=== PATIENT | male | born 1945 | race Caucasian/White ===

== ENCOUNTER 2017-12-30 13:54 | Inpatient (IN) | payer MEDICARE ==
[~2017-12-30] VITALS: Ht 167.6 cm; Wt 81.7 kg
[2017-12-30] MEDS ORDERED: SODIUM CHLORIDE FLUSH 10ML SYR IVF ONE (14:30)
[2017-12-30] MEDS ORDERED: ASPIRIN 81 MG TABLET CHEW PO ONE ×2 (14:30)
[2017-12-30 14:31] LABS: BASOPHILS # (AUTO) 0.12 x10^3/uL (0-0.1); BASOPHILS % (AUTO) 1 % (0-1); EOSINOPHILS # (AUTO) 0.11 x10^3/uL (0-0.4); EOSINOPHILS % (AUTO) 1 % (1-7); LYMPHOCYTES # (AUTO) 2.59 x10^3/uL (1-3.4); LYMPHOCYTES % (AUTO) 27 % (22-44); MD NO; MEAN CORPUSCULAR HEMOGLOBIN 31.6 pg (27.5-34.5); MEAN CORPUSCULAR HGB CONC 33.4 g/dL (33.2-36.2); MEAN CORPUSCULAR VOLUME 94.8 fL (81-97); MEAN PLATELET VOLUME 8.3 fL (7.4-10.4); MONOCYTES # (AUTO) 0.59 x10^3/uL (0.2-0.8); MONOCYTES % (AUTO) 6 % (2-9); NEUTROPHILS # (AUTO) 6.16 x10^3/uL (1.8-6.8); NEUTROPHILS % (AUTO) 64 % (42-75); PLATELET COUNT 259 x10^3/uL (130-400); RED BLOOD COUNT 4.78 x10^6/uL (4.38-5.82); RED CELL DISTRIBUTION WIDTH 12.4 % (9.4-14.8)
[2017-12-30 14:39] LABS: ALBUMIN 4.2 g/dL (3.4-5.0); CALCIUM 9.7 mg/dL (8.5-10.1); CHLORIDE 106 mmol/L (98-107); CREATININE 1.17 mg/dL (0.7-1.3)
[2017-12-30 14:50] LABS: ANION GAP 10 mmol/L (5-15); TROPONIN I 0.054 ng/mL (0.000-0.045)
[2017-12-30] MEDS ORDERED: ASPIRIN 81 MG TABLET CHEW ONE (15:57)
[2017-12-30] MEDS ORDERED: ONDANSETRON 2MG/ML, 2ML IVPush PRN (18:00)
[2017-12-30] MEDS ORDERED: HEPARIN 5,000 UNITS/ML, 1ML IV PRN (18:00)
[2017-12-30] MEDS ORDERED: LABETALOL 5MG/ML, 20ML IVPush PRN (18:00)
[2017-12-30] MEDS ORDERED: hydrALAzine 20 MG/ML, 1ML IVPush PRN (18:00)
[2017-12-30] MEDS ORDERED: DOCUSATE 100 MG CAPSULE PO PRN (18:00)
[2017-12-30] MEDS ORDERED: POLYETHYLENE GLYCOL 17 GM PACKET PO PRN (18:00)
[2017-12-30] MEDS ORDERED: HEPARIN 5,000 UNITS/ML, 1ML IV ONE (18:00)
[2017-12-30] MEDS ORDERED: HEPARIN 25,000 UNITS/500ML PMX 500 ML IV PRN (18:00)
[2017-12-30] MEDS ORDERED: ACETAMINOPHEN 325 MG TABLET PO PRN (18:00)
[2017-12-30 18:01] LABS: TROPONIN I 0.214 ng/mL (0.000-0.045)
[2017-12-30 18:43] VITALS: BP 129/75
[2017-12-30] MEDS: METOPROLOL SUCCINATE 25 MG TAB.ER.24H PO SCH (21:45)
[2017-12-30] MEDS: ATORVASTATIN 80 MG TABLET PO SCH (21:45)
[2017-12-30 23:07] LABS: TROPONIN I 0.659 ng/mL (0.000-0.045)
[2017-12-31] VITALS (9 sets, daily range): BP systolic 99–185; BP diastolic 52–100
[2017-12-31] MEDS: NITROGLYCERIN 0.4 MG BOTTLE (25 TABS) SL PRN ×2 (04:24→05:18)
[2017-12-31] MEDS ORDERED: NITROGLYCERIN 0.4 MG/SPRAY SL PRN (04:30)
[2017-12-31] MEDS: ASPIRIN 81 MG TABLET EC PO SCH (05:18)
[2017-12-31 05:39] LABS: ALANINE AMINOTRANSFERASE 30 U/L (12-78); ALBUMIN 3.9 g/dL (3.4-5.0); ANION GAP 9 mmol/L (5-15); CALCIUM 8.8 mg/dL (8.5-10.1); CHLORIDE 106 mmol/L (98-107); CHOLESTEROL, TOTAL 285 mg/dL (140-239); CREATININE 1.27 mg/dL (0.7-1.3)
[2017-12-31 05:41] LABS: BASOPHILS # (AUTO) 0.05 x10^3/uL (0-0.1); BASOPHILS % (AUTO) 0 % (0-1); EOSINOPHILS # (AUTO) 0.18 x10^3/uL (0-0.4); EOSINOPHILS % (AUTO) 2 % (1-7); LYMPHOCYTES # (AUTO) 4.13 x10^3/uL (1-3.4); LYMPHOCYTES % (AUTO) 38 % (22-44); MD NO; MEAN CORPUSCULAR HEMOGLOBIN 31.4 pg (27.5-34.5); MEAN CORPUSCULAR HGB CONC 33.3 g/dL (33.2-36.2); MEAN CORPUSCULAR VOLUME 94.4 fL (81-97); MEAN PLATELET VOLUME 8.7 fL (7.4-10.4); MONOCYTES # (AUTO) 0.85 x10^3/uL (0.2-0.8); MONOCYTES % (AUTO) 8 % (2-9); NEUTROPHILS % (AUTO) 52 % (42-75); PLATELET COUNT 252 x10^3/uL (130-400); RED BLOOD COUNT 4.78 x10^6/uL (4.38-5.82); RED CELL DISTRIBUTION WIDTH 12.7 % (9.4-14.8)
[2017-12-31 05:43] LABS: ALKALINE PHOSPHATASE 91 U/L (45-117); BILIRUBIN,TOTAL 0.7 mg/dL (0.2-1.0); CHOL/HDL RATIO 7.9; HDL CHOL % 13 % (26-37); HDL CHOLESTEROL (DIRECT) 36 mg/dL (40-60); TOTAL PROTEIN 7.2 g/dL (6.4-8.2); TRIGLYCERIDES 547 mg/dL (50-200); TROPONIN I 0.676 ng/mL (0.000-0.045)
[2017-12-31 06:04] LABS: PROTHROMBIN TIME 10.3 Seconds (9.6-11.5)
[2017-12-31] MEDS: METOPROLOL SUCCINATE 25 MG TAB.ER.24H PO SCH ×2 (08:21→20:29)
[2017-12-31] MEDS ORDERED: ENALAPRIL 2.5MG TABLET PO SCH (09:00)
[2017-12-31] MEDS: FENOFIBRATE 145 MG TABLET PO SCH (10:16)
[2017-12-31] MEDS: ENALAPRIL 2.5MG TABLET PO SCH (10:16)
[2017-12-31 10:43] LABS: ANION GAP 6 mmol/L (5-15); CHLORIDE 106 mmol/L (98-107); CREATININE 1.21 mg/dL (0.7-1.3)
[2017-12-31] MEDS ORDERED: TICAGRELOR 90 MG TABLET ONE (14:11)
[2017-12-31] MEDS ORDERED: MIDAZOLAM 1 MG/ML, 5ML ONE (14:11)
[2017-12-31] MEDS ORDERED: BIVALIRUDIN 250 MG ONE (14:11)
[2017-12-31] MEDS ORDERED: VERAPAMIL 2.5 MG/ML, 2ML ONE (14:11)
[2017-12-31] MEDS ORDERED: FENTANYL PF 100 MCG/2ML ONE (14:11)
[2017-12-31] MEDS ORDERED: HEPARIN 1,000 UNITS/ML, 10ML ONE (14:11)
[2017-12-31] MEDS ORDERED: LIDOCAINE 2%, 2ML ONE (14:11)
[2017-12-31] MEDS: SODIUM CHLORIDE 0.9% 1,000 ML IV SCH ×2 (15:53→23:38)
[2017-12-31] MEDS: ATORVASTATIN 80 MG TABLET PO SCH (20:29)
[2017-12-31] MEDS: TICAGRELOR 90 MG TABLET PO SCH (20:29)
[2018-01-01 02:00] VITALS: BP 138/75
[2018-01-01 05:39] LABS: BASOPHILS % (AUTO) 0 % (0-1); EOSINOPHILS % (AUTO) 2 % (1-7); LYMPHOCYTES # (AUTO) 2.85 x10^3/uL (1-3.4); LYMPHOCYTES % (AUTO) 23 % (22-44); MD NO; MEAN CORPUSCULAR HEMOGLOBIN 31.7 pg (27.5-34.5); MEAN CORPUSCULAR HGB CONC 33.5 g/dL (33.2-36.2); MEAN CORPUSCULAR VOLUME 94.6 fL (81-97); MEAN PLATELET VOLUME 8.6 fL (7.4-10.4); MONOCYTES # (AUTO) 1.16 x10^3/uL (0.2-0.8); MONOCYTES % (AUTO) 10 % (2-9); NEUTROPHILS # (AUTO) 7.97 x10^3/uL (1.8-6.8); NEUTROPHILS % (AUTO) 65 % (42-75); PLATELET COUNT 234 x10^3/uL (130-400); RED BLOOD COUNT 4.48 x10^6/uL (4.38-5.82); RED CELL DISTRIBUTION WIDTH 12.7 % (9.4-14.8)
[2018-01-01] MEDS: ASPIRIN 81 MG TABLET EC PO SCH (05:43)
[2018-01-01 05:48] LABS: ALBUMIN 3.3 g/dL (3.4-5.0); ANION GAP 7 mmol/L (5-15); CALCIUM 8.9 mg/dL (8.5-10.1); CHLORIDE 109 mmol/L (98-107); CREATININE 1.25 mg/dL (0.7-1.3)
[2018-01-01 07:12] VITALS: BP 148/82
[2018-01-01] MEDS: SODIUM CHLORIDE 0.9% 1,000 ML IV SCH (07:49)
[2018-01-01] MEDS ORDERED: ASPIRIN 81 MG TABLET EC PO SCH (09:00)
[2018-01-01] MEDS ORDERED: HEPARIN 5,000 UNITS/ML, 1ML SQ SCH (09:00)
[2018-01-01] MEDS: METOPROLOL SUCCINATE 25 MG TAB.ER.24H PO SCH (09:17)
[2018-01-01] MEDS: FENOFIBRATE 145 MG TABLET PO SCH (09:17)
[2018-01-01] MEDS: ENALAPRIL 2.5MG TABLET PO SCH (09:18)
[2018-01-01] MEDS: TICAGRELOR 90 MG TABLET PO SCH (09:20)
[2018-01-01] MEDS ORDERED: TICAGRELOR 90 MG TABLET ONE (10:23)
[2018-01-01] MEDS ORDERED: HEPARIN 1,000 UNITS/ML, 10ML ONE (10:23)
[2018-01-01] MEDS ORDERED: BIVALIRUDIN 250 MG ONE (10:23)
[2018-01-01] MEDS ORDERED: MIDAZOLAM 1 MG/ML, 5ML ONE (10:23)
[2018-01-01] MEDS ORDERED: NITROGLYCERIN 5 MG/ML, 10ML ONE (10:23)
[2018-01-01] MEDS ORDERED: FENTANYL PF 100 MCG/2ML ONE (10:23)
[2018-01-01] MEDS ORDERED: VERAPAMIL 2.5 MG/ML, 2ML ONE (10:23)
[2018-01-01] MEDS ORDERED: SODIUM CHLORIDE 0.9% 1,000 ML IV SCH ×2 (11:26→15:49)
[2018-01-01 12:27] VITALS: BP 114/65
[2018-01-01 13:00] VITALS: BP 118/70
[2018-01-01] MEDS ORDERED: ASPI-621 PO (13:43)
[2018-01-01] MEDS ORDERED: ENAL2.5T PO (13:43)
[2018-01-01] MEDS ORDERED: METO25TA91 PO (13:43)
[2018-01-01] MEDS ORDERED: ATOR-2 PO (13:43)
[2018-01-01] MEDS ORDERED: TICA90TA PO (13:43)
[2018-01-01] MEDS ORDERED: NITR0.4T SL (13:43)
[2018-01-01] MEDS ORDERED: FENO145T30 PO (13:43)
== END 2018-01-01 15:15 | disposition home or self-care (01) | DRG 246 ==
LOC: ED 15:47 → 5SO 17:24 → DCLOUNGE 01-01 14:56
PROVIDERS: ADMIT Hospitalist; ATTEND Hospitalist
PROC: 027035Z Dilation of Coronary Artery, One Artery with Two Drug-eluting Intraluminal Devices, Percutaneous Approach (ICD-10-PCS; principal; 2017-12-30)
PROC: 4A023N7 Measurement of Cardiac Sampling and Pressure, Left Heart, Percutaneous Approach (ICD-10-PCS; 2017-12-30)
PROC: B2111ZZ Fluoroscopy of Multiple Coronary Arteries using Low Osmolar Contrast (ICD-10-PCS; 2017-12-30)
PROC: B2151ZZ Fluoroscopy of Left Heart using Low Osmolar Contrast (ICD-10-PCS; 2017-12-30)
DX: I21.4 Non-ST elevation (NSTEMI) myocardial infarction (principal); I50.33 Acute on chronic diastolic (congestive) heart failure; I25.110 Atherosclerotic heart disease of native coronary artery with unstable angina pectoris; E78.5 Hyperlipidemia, unspecified; I10 Essential (primary) hypertension; G47.00 Insomnia, unspecified; E78.00 Pure hypercholesterolemia, unspecified; K21.9 Gastro-esophageal reflux disease without esophagitis; R73.03 Prediabetes; Z79.82 Long term (current) use of aspirin; Z79.899 Other long term (current) drug therapy; Z82.49 Family history of ischemic heart disease and other diseases of the circulatory system; Z87.891 Personal history of nicotine dependence
CPT/HCPCS: 0399T; 36415; 71046; 80048; 80053; 80061; 82040; 83036; 83735; 83880; 84100; 84484; 85025; 85520; 85610; 93005; 93306; 93458; 99156; 99157; 99285; C1769; C1894; C9600; J0583; J1644; J2250; J3010; J3490; C1725; C1874; C1887; J7030; Q9967

== ENCOUNTER 2018-01-21 15:20 | Observation (INO) | payer MEDICARE ==
[~2018-01-21] VITALS: Ht 167.6 cm; Wt 75.5 kg
[~2018-01-21 15:20] MED LIST: ASPI-621 PO; ATOR-2 PO; ENAL2.5T PO; FENO145T30 PO; METO25TA91 PO; NITR0.4T SL; TICA90TA PO
[2018-01-21] MEDS ORDERED: ASPIRIN 81 MG TABLET CHEW PO ONE (16:00)
[2018-01-21 16:11] LABS: BASOPHILS # (AUTO) 0.04 x10^3/uL (0-0.1); BASOPHILS % (AUTO) 0 % (0-1); EOSINOPHILS # (AUTO) 0.27 x10^3/uL (0-0.4); EOSINOPHILS % (AUTO) 2 % (1-7); LYMPHOCYTES # (AUTO) 3.14 x10^3/uL (1-3.4); LYMPHOCYTES % (AUTO) 24 % (22-44); MD NO; MEAN CORPUSCULAR HEMOGLOBIN 31.7 pg (27.5-34.5); MEAN CORPUSCULAR HGB CONC 33.1 g/dL (33.2-36.2); MEAN CORPUSCULAR VOLUME 95.8 fL (81-97); MEAN PLATELET VOLUME 8.3 fL (7.4-10.4); MONOCYTES # (AUTO) 0.89 x10^3/uL (0.2-0.8); MONOCYTES % (AUTO) 7 % (2-9); NEUTROPHILS # (AUTO) 8.75 x10^3/uL (1.8-6.8); NEUTROPHILS % (AUTO) 67 % (42-75); PLATELET COUNT 422 x10^3/uL (130-400); RED BLOOD COUNT 4.79 x10^6/uL (4.38-5.82); RED CELL DISTRIBUTION WIDTH 12.5 % (9.4-14.8)
[2018-01-21 16:17] LABS: ALANINE AMINOTRANSFERASE 27 U/L (12-78); ALBUMIN 4.1 g/dL (3.4-5.0); ANION GAP 8 mmol/L (5-15); CALCIUM 9.5 mg/dL (8.5-10.1); CHLORIDE 106 mmol/L (98-107); CREATININE 1.36 mg/dL (0.7-1.3)
[2018-01-21 16:21] LABS: ALKALINE PHOSPHATASE 89 U/L (45-117); BILIRUBIN,TOTAL 0.3 mg/dL (0.2-1.0); TOTAL PROTEIN 8.1 g/dL (6.4-8.2); TROPONIN I < 0.015 ng/mL (0.000-0.045)
[2018-01-21] MEDS ORDERED: SODIUM CHLORIDE 0.9% 1,000 ML IV SCH (17:33)
[2018-01-21] MEDS ORDERED: ONDANSETRON 2MG/ML, 2ML IVPush PRN (18:00)
[2018-01-21] MEDS ORDERED: ACETAMINOPHEN 325 MG TABLET PO PRN (18:00)
[2018-01-21] MEDS ORDERED: NITROGLYCERIN 0.4 MG BOTTLE (25 TABS) SL PRN (18:00)
[2018-01-21] MEDS ORDERED: hydrALAzine 20 MG/ML, 1ML IV PRN (18:00)
[2018-01-21] MEDS ORDERED: HEPARIN 5,000 UNITS/ML, 1ML ONE (18:43)
[2018-01-21] MEDS: HEPARIN 5,000 UNITS/ML, 1ML SQ SCH (18:48)
[2018-01-21 20:05] VITALS: BP 97/67
[2018-01-21] MEDS: TICAGRELOR 90 MG TABLET PO SCH (20:33)
[2018-01-21] MEDS ORDERED: ATORVASTATIN 80 MG TABLET PO SCH (21:00)
[2018-01-21 21:27] LABS: TROPONIN I < 0.015 ng/mL (0.000-0.045)
[2018-01-22 01:56] VITALS: BP 129/80
[2018-01-22] MEDS: HEPARIN 5,000 UNITS/ML, 1ML SQ SCH (05:17)
[2018-01-22 05:22] LABS: BASOPHILS # (AUTO) 0.04 x10^3/uL (0-0.1); BASOPHILS % (AUTO) 0 % (0-1); EOSINOPHILS # (AUTO) 0.33 x10^3/uL (0-0.4); EOSINOPHILS % (AUTO) 3 % (1-7); LYMPHOCYTES # (AUTO) 3.39 x10^3/uL (1-3.4); LYMPHOCYTES % (AUTO) 32 % (22-44); MD NO; MEAN CORPUSCULAR HEMOGLOBIN 31.4 pg (27.5-34.5); MEAN CORPUSCULAR HGB CONC 33.1 g/dL (33.2-36.2); MEAN CORPUSCULAR VOLUME 94.9 fL (81-97); MEAN PLATELET VOLUME 8.5 fL (7.4-10.4); MONOCYTES % (AUTO) 8 % (2-9); NEUTROPHILS # (AUTO) 6.03 x10^3/uL (1.8-6.8); NEUTROPHILS % (AUTO) 57 % (42-75); PLATELET COUNT 338 x10^3/uL (130-400); RED BLOOD COUNT 4.29 x10^6/uL (4.38-5.82); RED CELL DISTRIBUTION WIDTH 12.5 % (9.4-14.8)
[2018-01-22 05:24] LABS: ANION GAP 7 mmol/L (5-15); CALCIUM 9.1 mg/dL (8.5-10.1); CHLORIDE 110 mmol/L (98-107); CREATININE 1.28 mg/dL (0.7-1.3)
[2018-01-22] MEDS: TICAGRELOR 90 MG TABLET PO SCH (07:55)
[2018-01-22] MEDS ORDERED: FENOFIBRATE 145 MG TABLET PO SCH (09:00)
[2018-01-22] MEDS ORDERED: ASPIRIN 81 MG TABLET EC PO SCH (09:00)
[2018-01-22 09:10] VITALS: BP 114/72
[2018-01-22 09:55] LABS: CLOSTRIDIUM DIFFICILE ANTIGEN NEGATIVE; CLOSTRIDIUM DIFFICILE TOXIN NEGATIVE (Negative)
== END 2018-01-22 12:05 | disposition home or self-care (01) ==
LOC: ED 16:48 → EDIP 16:49 → ED 17:06 → 5SO 19:44
PROVIDERS: ADMIT Hospitalist; ATTEND Hospitalist
DX: T44.7X5A Adverse effect of beta-adrenoreceptor antagonists, initial encounter (principal); G47.00 Insomnia, unspecified; I10 Essential (primary) hypertension; I25.10 Atherosclerotic heart disease of native coronary artery without angina pectoris; R06.00 Dyspnea, unspecified; E78.00 Pure hypercholesterolemia, unspecified; I25.2 Old myocardial infarction; Z79.82 Long term (current) use of aspirin; Z95.5 Presence of coronary angioplasty implant and graft; Y92.89 Other specified places as the place of occurrence of the external cause
CPT/HCPCS: 36415; 71045; 80048; 80053; 83605; 84484; 85025; 87324; 93005; 96360; 96361; 96372; 99285; G0378; J1644; J7030